=== PATIENT | female | born 1990 | race Caucasian/White ===

== ENCOUNTER 2021-10-03 19:48 | Emergency (ER) | payer OTHER, SELFPAY ==
[2021-10-03 20:37] VITALS: BP 126/59; PULSE 76; RESP 20; TEMP 36.4; O2SAT 100; BMI 24.7
--- NOTE | 2021-10-03 20:50 | DI.US.S_ITS ---
PROCEDURE: US PELVIC COMPLETE INDICATIONS: PAIN; CHECK IUD PLACEMENT TECHNIQUE: Real-time scanning was performed of the pelvic organs, with image documentation. Additional endovaginal scanning was necessary due to incomplete visualization of the adnexal and endometrial structures by transabdominal scanning. COMPARISON: None. FINDINGS: Uterus: Uterus is anteverted and normal in size at 7.3 x 3.5 x 4.7 cm. The myometrium is homogeneous. The endometrium measures 4 mm combined thickness. An IUD is in satisfactory position. Ovaries: The right ovary measures 3.6 x 2.1 x 3.5 cm. It contains a probable hemorrhagic cyst measuring 1.3 x 1.9 x 1.7 cm. The left ovary measures 2.3 x 2.0 x 2.8 cm. There are less than 12 follicles in each ovary. There is intra-ovarian flow bilaterally. Other: There is hemorrhagic fluid surrounding left ovary consistent with ovarian cyst rupture into the perineum. IMPRESSION: 1. IUD in satisfactory position. 2. No evidence of ovarian torsion. 3. Hemorrhagic right ovarian cyst. 4. Hemorrhagic free fluid around the left ovary consistent with peritoneal rupture of a left ovarian cyst. We strive to produce accurate, complete, and clear reports of imaging services. To assist us in improving patient care, this report was composed using standard report templates and voice recognition software. Therefore, it may contain abnormal punctuation, insertions and/or omissions. Occasional wrong-word or sound-alike substitutions may occur. Though we review the report and make efforts to correct it, we do recommend that the report be read carefully in proper context to recognize any text inaccuracies. Dictated by: Adrian Anne M.D. on 10/03/2021 at 21:41 Approved by: Adrian Anne M.D. on 10/03/2021 at 21:48
--- NOTE | 2021-10-03 22:29 | ED_ITS ---
HPI - Female Genitourinary General Chief complaint: Urogenital-Female Stated complaint: IUD lodged somewhere it shouldn't be Time Seen by Provider: 10/03/21 20:50 Source: patient Mode of arrival: Ambulatory History of Present Illness HPI Narrative: 31-year-old female nonsmoker without significant chronic medical history presents with her significant other and a chief complaint of a sudden onset and severe pelvic pain in the aftermath of sexual intercourse. She states since then she cannot feel her IUD strings and is convinced that it has been malaligned. Her symptoms are much improved now. She denies any vaginal bleeding or discharge. She states the pain seems to be worse when she moves and improves with rest. She is not dizzy nor weak or lightheaded. Related Data Previous Rx's Medication Instructions Recorded ketorolac 10 mg tablet 10 mg PO Q6H PRN #14 tab 10/03/21 ondansetron 4 mg disintegrating 4 mg PO TID-QID PRN #10 tab 10/03/21 tablet Allergies Allergy/AdvReac Type Severity Reaction Status Date / Time Penicillins Allergy Verified 10/03/21 20:45 Sulfa (Sulfonamide Allergy Verified 10/03/21 20:45 Antibiotics) ciprofloxacin [From Cipro] AdvReac Confusion Verified 10/03/21 20:45 Review of Systems Review of Systems Narrative: GENERAL: Denies chills, fatigue, malaise, fever, sweats. HEENT: Denies sinus pain, ear pain, sore throat, difficulty swallowing, dizziness. RESPIRATORY: Denies dyspnea, cough, wheezing, hemoptysis, sputum. CARDIOVASCULAR: Denies chest pain, palpitations, orthopnea, edema, GASTROINTESTINAL: Denies nausea, vomiting, abdominal pain, diarrhea, constipation, melena. : See HPI MUSCULOSKELETAL: denies weakness, joint pain, or bony pain SKIN: Denies rash, skin lesions, or other NEUROLOGIC: Denies weakness, headache, numbness, change in speech, confusion, seizures, incoordination. PSYCHIATRIC: No concerning psychosocial issues. 12 point review of systems is negative except for those stated above Patient History alcohol intake frequency: 0-2 drinks per day Substance Use Type: does not use Exam Narrative Exam Narrative: GENERAL: [31] year old patient appears stated age. Well-developed patient, in mild distress. HEAD: Atraumatic. Normocephalic. EYES: Pupils equal round and reactive. Extraocular motions intact. No scleral icterus. No injection or drainage. ENT: Nose without bleeding, purulent drainage. Throat without erythema, tonsillar hypertrophy or exudate. Airway patent. NECK: Trachea midline. Non tender CARDIOVASCULAR: Regular rate and rhythm without murmurs, gallops, or rubs. RESPIRATORY: Clear to auscultation. Breath sounds equal bilaterally. No wheezes, rales, or rhonchi. GASTROINTESTINAL: Abdomen soft, very minimal tenderness in the suprapubic region nondistended. EXTREMITIES: No edema or joint tenderness. BACK: Nontender without deformity or crepitance. No flank tenderness. NEURO: AOx3. SKIN: No rash or erythema of visible areas Initial Vital Signs Initial Vital Signs: Vital Signs Temperature 97.6 F 10/03/21 20:37 Pulse Rate 76 10/03/21 20:37 Respiratory Rate 20 10/03/21 20:37 Blood Pressure 126/59 L 10/03/21 20:37 Pulse Oximetry 100 10/03/21 20:37 Course Orders Ordered: ED Orders 10/03/21 20:50 US pelvic complete Stat Vital Signs Vital signs: Vital Signs - 8 hr 10/03/21 20:37 Temperature 97.6 F Pulse Rate 76 Respiratory Rate 20 Blood Pressure 126/59 L Pulse Oximetry 100 MDM - Female Genitourinary Lab Data Labs: Point of Care Testing Test Results Negative Urine Dip Bedside Urine Glucose Negative Bedside Urine Bilirubin - Negative Bedside Urine Ketone - Negative Urine Specific Gore 1.015 Bedside Urine Occult Blood - Negative Bedside Urine pH 8 Bedside Urine Protein - Negative Bedside Urine Urobilinogen - Negative Bedside Urine Nitrite - Negative Bedside Urine Leukocytes - Negative Esterase Imaging Data US - CATCH BASIN CLEANER: Radiologist's Impression: Chart Viewer Diagnostics Subcategory All Activity ??:?? All Time ??:?? All Subcategories Filter Laboratory Imaging Microbiology Pathology Blood Bank Tests Cardiovascular Other Specialty DATE TYPE STATUS REF RANGE/AUTHOR Hx Today 20:50 Pelvis Ultrasound Signed Adrian Anne Megan K ED 31, F?1990 MRN#? [id number] [facility],?Main ED??R04?? 157.48cm 61.235kg BMI: 24.7kg/m? Urogenital-Female Acc#? [id number] Resus Status Not Ordered No Hx Avail Special Indicators No Data to Display Home Meds Prescription Monitoring Program No Data to Display Allergies Penicillins Sulfa (Sulfonamide Antibiotics) ciprofloxacin (From Cipro) Confusion Problems No Data to Display Vital Signs Today 20:37 BP 126/59?L Pulse 76? Resp 20? Temp 97.6 F? O2 Sat 100? Delivery Room Air? Diagnostics Reports Cindy Cummings??31??F??1990 ? Allergy/Adv: Penicillins, Sulfa (Sulfonamide Antibiotics), ciprofloxacin (More??) Close Pelvis Ultrasound (Signed) Adrian Anne - 10/03/21 [place] [address] Ultrasound Report Signed Patient: Cindy Cummings MR#: [id number] : 1990 Acct:[id number] Age/Sex: 31 / F Date of Service: 10/03/21 Loc: ED Accession Number: [id number] ?? Procedure: US pelvic complete Ordering Provider: Govind Argueta D.O. PROCEDURE:? US PELVIC COMPLETE ? INDICATIONS:? PAIN; CHECK IUD PLACEMENT ? TECHNIQUE:? Real-time scanning was performed of the pelvic organs, with image documentation.? Additional endovaginal scanning was necessary due to incomplete visualization of the adnexal and endometrial structures by transabdominal scanning.? ? COMPARISON:? None. ? FINDINGS:? ?? Uterus:? Uterus is anteverted and normal in size at 7.3 x 3.5 x 4.7 cm. The myometrium is homogeneous. ? The endometrium measures 4 mm combined thickness.? An IUD is in satisfactory position. ? Ovaries:? The right ovary measures 3.6 x 2.1 x 3.5 cm.? It contains a probable hemorrhagic cyst measuring 1.3 x 1.9 x 1.7 cm.? The left ovary measures 2.3 x 2.0 x 2.8 cm.? There are less than 12 follicles in each ovary.? There is intra-ovarian flow bilaterally. ? Other:? There is hemorrhagic fluid surrounding left ovary consistent with ovarian cyst rupture into the perineum. ? ? IMPRESSION:? ? 1. IUD in satisfactory position. ? 2. No evidence of ovarian torsion. ? 3. Hemorrhagic right ovarian cyst. ? 4. Hemorrhagic free fluid around the left ovary consistent with peritoneal rupture of a left ovarian cyst.? We strive to produce accurate, complete, and clear reports of imaging services. To assist us in improving patient care, this report was composed using standard report templates and voice recognition software. Therefore, it may contain abnormal punctuation, insertions and/or omissions. Occasional wrong-word or sound-alike substitutions may occur. Though we review the report and make efforts to correct it, we do recommend that the report be read carefully in proper context to recognize any text inaccuracies. ? ? Dictated by: Adrian Anne M.D. on 10/03/2021 at 21:41 ? ? Approved by: Adrian Anne M.D. on 10/03/2021 at 21:48 ? MDM Narrative Medical decision making narrative: Patient with reassuring history and physical exam. Imaging demonstrates IUD in appropriate place and likely ruptured ovarian cyst. Her symptoms are greatly improved and she has no vaginal bleeding or discharge. We did discuss pelvic exam and agree that it is not likely to change the disposition. Given improvement of symptoms and reassuring elements to history, physical and ultrasound we discussed the utility of lab work or other imaging and sure the opinion there is very little is would do to change the course. She has been given return precautions and questions have been answered to her apparent satisfaction Discharge Plan Departure Patient Disposition: Home Clinical Impression: Pelvic pain, Ovarian cyst Instructions: DI for Ovarian Cyst Activity Restrictions/Additional Instructions: *You have been diagnosed with [ovarian cyst ]. Your history and physical exam are very reassuring. Ultrasound shows no sign of abnormal IUD placement. *What to do: *Please continue to take your regular medications as directed. [ ] New medication prescriptions sent to your pharmacy: [ ] [ x] New medication written as a paper prescription [ ] No new medications given *Please follow up with your primary care provider in 2-3 days, call for an appointment. Let them know you were seen in the Emergency Department and that we ask that you be seen in follow up. We will electronically transmit a record of today's note if your PCP is in our system *If you do not have a primary care provider please contact the [facility] Resource line at [phone]. They will ask some questions about your medical history and help get you set up with a doctor in the community. *Return to Emergency Department if you should have any new, worsening or concerning symptoms, such as [fever greater than 101 F, shaking chills, worsening pain, persistent vomiting or other bothersome symptoms] Prescriptions: New ketorolac 10 mg tablet 10 mg PO Q6H PRN (Reason: pain) Qty: 14 0RF ondansetron 4 mg tablet,disintegrating 4 mg PO TID-QID PRN (Reason: nausea and vomiting) Qty: 10 0RF
== END 2021-10-03 22:49 | disposition home or self-care (01) ==
PROVIDERS: Emergency Provider Emergency Medicine
DX: N83.202 Unspecified ovarian cyst, left side (principal); R10.2 Pelvic and perineal pain
CPT/HCPCS: 76830; 76856; 81003; 81025; 99282; 99283